=== PATIENT | female | born 1955 | race Caucasian/White ===

== ENCOUNTER 2017-12-07 12:00 | Inpatient (IN) | payer BC ==
[2017-12-07] VITALS (7 sets, daily range): BP systolic 147–201; BP diastolic 64–84
[~2017-12-07] VITALS: Ht 152.4 cm; Wt 76.9 kg
[~2017-12-07 12:00] MED LIST: ANUCORT HC25 MG RC; FLEXERIL; K-DUR 20MEQ20 MEQ PO; MOTRIN800 MG PO; NKHM; NORVASC5 MG PO; RESTORIL; RITALIN10 MG
[2017-12-07] MEDS ORDERED: NORVASC5 MG PO (12:10)
[2017-12-07] MEDS ORDERED: PRILOSEC20 M1 PO (12:12)
[2017-12-07] MEDS ORDERED: OSTERA TABLET1 EACH PO (12:13)
[2017-12-07] MEDS ORDERED: COZAAR100 MG PO (12:13)
[2017-12-07] MEDS ORDERED: ADDERALL 30 MG30 MG PO (12:14)
[2017-12-07 12:33] LABS: BASO # 0.1 10*3/uL (0.0-0.1); BASO % 0.5 % (0.0-1.0); EOS # 0.2 10*3/uL (0.0-0.4); EOS % 1.9 % (1.0-4.0); HEMATOCRIT 43.2 % (37.0-47.0); HEMOGLOBIN 14.2 g/dl (12.0-16.0); LYMPH # 4.5 10*3/uL (1.3-4.4); LYMPH % 44.1 % (27.0-41.0); MEAN CELL VOLUME 80.7 fl (81.0-99.0); MEAN CORPUSCULAR HGB 26.5 pg (27.0-31.0); MEAN CORPUSCULAR HGB CONC 32.9 g/dl (33.0-37.0); MEAN PLATELET VOLUME 9.7 fl (9.6-12.3); MONO # 0.7 10*3/uL (0.1-1.0); MONO % 6.7 % (3.0-9.0); NEUT # 4.8 10*3/uL (2.3-7.9); NEUT % 46.6 % (47.0-73.0); PLATELET COUNT AUTOMATED 292 10*3/uL (130-400); RED BLOOD COUNT 5.35 10*6/uL (4.10-5.10); RED CELL DISTRI WIDTH 14.2 % (0-14.5); WHITE BLOOD COUNT 10.3 10*3/uL (4.8-10.8)
[2017-12-07 12:42] LABS: ACT PARTIAL THROMBO TIME 23.1 SECONDS (20.8-31.5); INTERNATIONAL NORM RATIO 0.9 (2.0-3.5)
[2017-12-07 12:55] LABS: ALBUMIN 3.8 gm/dl (3.1-4.5); ALKALINE PHOSPHATASE 118 U/L (45-117); BUN 7 mg/dl (7-24); CHLORIDE 101 mmol/L (98-107); CREATININE 0.87 mg/dL (0.55-1.02); LIPASE 84 U/L (73-393); POTASSIUM 3.4 mmol/L (3.5-5.1); SGOT/AST 30 IU/L (3-35); SGPT/ALT 32 U/L (12-78); SODIUM 137 mmol/L (136-145); TOTAL PROTEIN 8.2 gm/dL (6.4-8.2)
[2017-12-07 12:56] LABS: TROPONIN I < 0.015 ng/ml (<0.045)
[2017-12-07] MEDS ORDERED: VITAMIN D5000 UNIT PO (16:22)
[2017-12-07] MEDS ORDERED: DUONEB 3 MG/3 ML3 M1 INH (16:23)
[2017-12-07] MEDS ORDERED: ADVAIR HFA 115-12 GM INH (16:24)
[2017-12-08] VITALS: BP 127/54
[2017-12-08 06:44] LABS: BASO % 0.6 % (0.0-1.0); EOS # 0.2 10*3/uL (0.0-0.4); EOS % 2.3 % (1.0-4.0); HEMATOCRIT 40.7 % (37.0-47.0); HEMOGLOBIN 13.1 g/dl (12.0-16.0); LYMPH # 3.5 10*3/uL (1.3-4.4); LYMPH % 51.2 % (27.0-41.0); MEAN CELL VOLUME 82.4 fl (81.0-99.0); MEAN CORPUSCULAR HGB 26.5 pg (27.0-31.0); MEAN CORPUSCULAR HGB CONC 32.2 g/dl (33.0-37.0); MONO # 0.6 10*3/uL (0.1-1.0); NEUT # 2.6 10*3/uL (2.3-7.9); NEUT % 37.8 % (47.0-73.0); PLATELET COUNT AUTOMATED 264 10*3/uL (130-400); RED BLOOD COUNT 4.94 10*6/uL (4.10-5.10); WHITE BLOOD COUNT 6.9 10*3/uL (4.8-10.8)
[2017-12-08 07:16] LABS: ALBUMIN 3.4 gm/dl (3.1-4.5); BUN 8 mg/dl (7-24); CHLORIDE 101 mmol/L (98-107); CHOLESTEROL 130 mg/dL (<200); CREATININE 0.93 mg/dL (0.55-1.02); HDL CHOLESTEROL 40 mg/dl (40-60); LDL CHOLESTEROL 71 mg/dL (9-159); PHOSPHOROUS 3.6 mg/dL (2.5-4.9); POTASSIUM 3.2 mmol/L (3.5-5.1); SGPT/ALT 27 U/L (12-78); SODIUM 140 mmol/L (136-145); TOTAL PROTEIN 7.5 gm/dL (6.4-8.2); TRIGLYCERIDES 97 mg/dl (<150); VLDL CHOLESTEROL 19 mg/dL (6-40)
[2017-12-08 07:21] LABS: ALKALINE PHOSPHATASE 100 U/L (45-117); SGOT/AST 17 IU/L (3-35)
[2017-12-08 08:00] VITALS: BP 149/77
[2017-12-08 08:31] LABS: VITAMIN D, 25-HYDROXY 24.5 ng/mL (30-100)
[2017-12-08 12:00] VITALS: BP 143/67
== END 2017-12-08 15:54 | disposition home or self-care (01) | DRG 305 ==
LOC: ED 12:00 → 5E 14:48 → EDHOLD 14:48 → 5E 15:04
PROVIDERS: Emergency Medicine; Internal Medicine
DX: I16.1 Hypertensive emergency (principal); E83.41 Hypermagnesemia; E66.9 Obesity, unspecified; R20.2 Paresthesia of skin; E87.6 Hypokalemia; J45.909 Unspecified asthma, uncomplicated; I10 Essential (primary) hypertension; R53.82 Chronic fatigue, unspecified; K64.9 Unspecified hemorrhoids; K59.00 Constipation, unspecified; K21.9 Gastro-esophageal reflux disease without esophagitis; Z68.30 Body mass index [BMI] 30.0-30.9, adult

== ENCOUNTER 2018-10-26 12:34 | Emergency (ER) | payer BC ==
[~2018-10-26] VITALS: Ht 152.4 cm; Wt 75.7 kg
[~2018-10-26 12:34] MED LIST changes: +ADDERALL 30 MG30 MG PO; +ADVAIR HFA 115-12 GM INH; +COZAAR100 MG PO; +DUONEB 3 MG/3 ML3 M1 INH; +OSTERA TABLET1 EACH PO; +PRILOSEC20 M1 PO; +VITAMIN D5000 UNIT PO
[2018-10-26] MEDS ORDERED: PROAIR HFA8.5 GM INH (14:25)
[2018-10-26] MEDS ORDERED: PREDNISONE50 MG PO (14:25)
[2018-10-26] MEDS ORDERED: AMOXICILLIN500 M3 PO (14:25)
[2018-10-26 14:27] VITALS: BP 149/60
== END 2018-10-26 14:29 | disposition home or self-care (01) ==
LOC: ED 12:34
DX: H65.91 Unspecified nonsuppurative otitis media, right ear (principal); J20.9 Acute bronchitis, unspecified; J45.909 Unspecified asthma, uncomplicated; I10 Essential (primary) hypertension; Z79.899 Other long term (current) drug therapy

== ENCOUNTER 2022-07-30 13:45 | Emergency (ER) | payer BC ==
[~2022-07-30] VITALS: Wt 72.6 kg
[~2022-07-30 13:45] MED LIST changes: +AMOXICILLIN500 M3 PO; +PREDNISONE50 MG PO; +PROAIR HFA8.5 GM INH
[2022-07-30 13:54] VITALS: BP 133/57
[2022-07-30 15:35] LABS: BILIRUBIN Negative (Negative); BLOOD Negative (Negative); CLARITY Clear (Clear); COLOR Yellow (Yellow); GLUCOSE Negative (Negative); KETONE Negative (Negative); LEUKO ESTERASE 2+ (Negative); NITRITE Negative (Negative); UROBILINOGEN 0.2 E.U./dl (0.0-1.0)
[2022-07-30 16:03] LABS: BACTERIA 2+; EPITHELIAL CELLS TNTC; RBC 0-2 rbc/hpf (0-2); WBC 16-20 wbc/hpf (0-5)
[2022-07-30] MEDS ORDERED: PYRIDIUM200 M1 PO (16:25)
[2022-07-30] MEDS ORDERED: MACROBID100 M1 PO (16:25)
== END 2022-07-30 16:36 | disposition home or self-care (01) ==
LOC: ED 13:45
PROVIDERS: Emergency Medicine
DX: N39.0 Urinary tract infection, site not specified (principal); Z79.899 Other long term (current) drug therapy; Z90.89 Acquired absence of other organs; Z98.890 Other specified postprocedural states

== ENCOUNTER 2022-10-01 16:43 | Emergency (ER) | payer BC ==
[~2022-10-01] VITALS: Wt 72.6 kg
[~2022-10-01 16:43] MED LIST changes: +MACROBID100 M1 PO; +PYRIDIUM200 M1 PO
[2022-10-01 16:48] VITALS: BP 175/78
[2022-10-01] MEDS ORDERED: PREDNISONE50 MG PO (17:14)
[2022-10-01] MEDS ORDERED: MUCINEX1200 M1 PO (17:14)
== END 2022-10-01 17:30 | disposition home or self-care (01) ==
LOC: ED 16:43
DX: J45.901 Unspecified asthma with (acute) exacerbation (principal); Z90.89 Acquired absence of other organs; Z98.890 Other specified postprocedural states; F10.20 Alcohol dependence, uncomplicated

== ENCOUNTER 2024-11-13 12:59 | Inpatient (IN) | payer BC ==
[~2024-11-13] VITALS: Ht 149.8 cm; Wt 78.6 kg
[~2024-11-13 12:59] MED LIST changes: +MUCINEX1200 M1 PO
[2024-11-13 13:10] VITALS: BP 140/71
[2024-11-13] MEDS ORDERED: Ondansetron Hydrochloride 4 MG/2 ML VIAL IV ONE ×2 (14:15→17:15)
[2024-11-13] MEDS ORDERED: Acetaminophen/Oxycodone 5 MG/325 MG TABLET PO ONE (14:15)
[2024-11-13] MEDS ORDERED: ACETAMINOPHEN 500 MG TAB PO ONE (14:15)
[2024-11-13] MEDS ORDERED: SODIUM CHLORIDE 0.9% 1,000 ML IV ONE (14:15)
[2024-11-13 14:36] LABS: BASO % 0.2 % (0.0-1.0); HEMATOCRIT 42.9 % (37.0-47.0); MEAN CELL VOLUME 82.7 fl (81.0-99.0); MEAN CORPUSCULAR HGB 25.6 pg (27.0-31.0); MEAN PLATELET VOLUME 9.7 fl (9.6-12.3); MONO # 0.7 10*3/uL (0.1-1.0); MONO % 3.7 % (3.0-9.0); NEUT # 17.5 10*3/uL (2.3-7.9); NEUT % 87.1 % (47.0-73.0); PLATELET COUNT AUTOMATED 284 10*3/uL (130-400); RED BLOOD COUNT 5.19 10*6/uL (4.10-5.10); RED CELL DISTRI WIDTH 14.3 % (0-14.5); WHITE BLOOD COUNT 20.1 10*3/uL (4.8-10.8)
[2024-11-13 14:58] LABS: ALKALINE PHOSPHATASE 103 U/L (46-116); BUN 8 mg/dl (9-23); CHLORIDE 99 mmol/L (98-107); LIPASE 23 U/L (12-53); POTASSIUM 3.4 mmol/L (3.4-5.1); SGPT/ALT 21 U/L (5-49); TOTAL PROTEIN 8.8 gm/dL (6.0-8.0)
[2024-11-13] MEDS ORDERED: IOHEXOL 300 MG/ML 100 ML VIAL IV ONE (15:25)
[2024-11-13] MEDS ORDERED: IOHEXOL 300 MG/ML 100 ML VIAL ONE (15:42)
[2024-11-13] MEDS ORDERED: Piperacillin Sodium/Tazobact 50 ML IV ONE (15:50)
[2024-11-13] MEDS ORDERED: SODIUM CHLORIDE 0.9% 1,000 ML IV SCH (15:50)
[2024-11-13 17:15] LABS: BILIRUBIN Negative (Negative); BLOOD 1+ (Negative); CLARITY Clear (Clear); COLOR Yellow (Yellow); GLUCOSE Negative (Negative); KETONE Trace (Negative); LEUKO ESTERASE Trace (Negative); NITRITE Negative (Negative); PH 7.5 (4.5-8.0)
[2024-11-13 17:29] LABS: BACTERIA 1+; MUCOUS 3+
[2024-11-13] MEDS ORDERED: Ceftriaxone Sodium 1 GM/10 ML SYR IV ONE (19:30)
[2024-11-13] MEDS ORDERED: OFLOXACIN 0.3% 5 ML BOTTLE OT ONE (19:30)
[2024-11-13 19:32] VITALS: BP 109/50
[2024-11-13] MEDS ORDERED: Acetaminophen/Hydrocodone 5 MG/325 MG TABLET PO PRN (21:35)
[2024-11-13] MEDS ORDERED: BISACODYL 10 MG SUPP R PRN (21:35)
[2024-11-13] MEDS ORDERED: BISACODYL 5 MG TAB PO PRN (21:35)
[2024-11-13] MEDS ORDERED: ACETAMINOPHEN 650 MG SUPP R PRN (21:35)
[2024-11-13] MEDS ORDERED: MORPHINE Sulfate 2 MG/ML SYR IV PRN (21:35)
[2024-11-13] MEDS ORDERED: Ondansetron Hydrochloride 4 MG/2 ML VIAL IV PRN (21:35)
[2024-11-13] MEDS ORDERED: Magnesium Hydroxide 30 ML UDC PO PRN (21:35)
[2024-11-13] MEDS ORDERED: ACETAMINOPHEN 325 MG TAB PO PRN (21:35)
[2024-11-13] MEDS ORDERED: Ciprofloxacin Hydrochloride 0.3% OPHTHLAMIC BOTTLE OT SCH (22:24)
[2024-11-14] MEDS ORDERED: ACETIC ACID OT SCH
[2024-11-14] MEDS ORDERED: HYDROCORTISONE OT SCH
[2024-11-14 06:00] VITALS: BP 132/64
[2024-11-14 06:53] LABS: BASO % 0.4 % (0.0-1.0); EOS % 0.4 % (1.0-4.0); HEMATOCRIT 37.9 % (37.0-47.0); MEAN CELL VOLUME 82.4 fl (81.0-99.0); MEAN CORPUSCULAR HGB 25.7 pg (27.0-31.0); MEAN CORPUSCULAR HGB CONC 31.1 g/dl (33.0-37.0); MEAN PLATELET VOLUME 10.4 fl (9.6-12.3); MONO # 0.8 10*3/uL (0.1-1.0); MONO % 7.8 % (3.0-9.0); NEUT # 7.3 10*3/uL (2.3-7.9); NEUT % 68.8 % (47.0-73.0); RED CELL DISTRI WIDTH 14.6 % (0-14.5); WHITE BLOOD COUNT 10.6 10*3/uL (4.8-10.8)
[2024-11-14 06:55] LABS: PLATELET COUNT AUTOMATED 196 10*3/uL (130-400)
[2024-11-14 07:49] VITALS: BP 127/67
[2024-11-14 07:59] LABS: BUN 6 mg/dl (9-23); CHLORIDE 103 mmol/L (98-107); POTASSIUM 3.4 mmol/L (3.4-5.1)
[2024-11-14] MEDS ORDERED: IOHEXOL 300 MG/ML 100 ML VIAL IV ONE (08:05)
[2024-11-14] MEDS ORDERED: ROSUVASTATIN CAL5 MG PO (09:45)
[2024-11-14] MEDS ORDERED: MONTELUKAST SOD10 MG PO (09:45)
[2024-11-14] MEDS ORDERED: FLUCONAZOLE 100 ML IV SCH (10:00)
[2024-11-14] MEDS ORDERED: Enoxaparin Sodium 40 MG/0.4 ML SYR SC SCH (10:00)
[2024-11-14] MEDS ORDERED: LEVOFLOXACIN 750 MG TAB PO ONE (11:25)
[2024-11-14] MEDS ORDERED: Ceftriaxone Sodium 2 GM in SYRINGE INFUSION 20 ML IV SCH (12:00)
[2024-11-14] MEDS ORDERED: Piperacillin Sodium/Tazobact 4.5 GM in SODIUM CHLORIDE 0.9% 100 ML IV SCH (14:00)
[2024-11-14] MEDS ORDERED: Vancomycin Hydrochloride 1,000 MG in SODIUM CHLORIDE 0.9% 250 ML IV SCH ×2 (14:10→16:00)
[2024-11-14 15:27] VITALS: BP 139/63
[2024-11-14] MEDS ORDERED: NORVASC10 MG PO (15:58)
[2024-11-14] MEDS ORDERED: PEG3350238 GM PO (16:00)
[2024-11-14] MEDS ORDERED: Ceftriaxone Sodium 1 GM in SYRINGE INFUSION 10 ML IV SCH (18:00)
[2024-11-14 20:00] VITALS: BP 129/41
[2024-11-14] MEDS ORDERED: Rosuvastatin Calcium 10 MG TABLET PO SCH (22:00)
[2024-11-15] VITALS: BP 153/62
[2024-11-15 06:17] LABS: BASO % 0.5 % (0.0-1.0); EOS # 0.1 10*3/uL (0.0-0.4); EOS % 0.7 % (1.0-4.0); HEMATOCRIT 37.7 % (37.0-47.0); MEAN CELL VOLUME 81.8 fl (81.0-99.0); MEAN CORPUSCULAR HGB 25.6 pg (27.0-31.0); MEAN CORPUSCULAR HGB CONC 31.3 g/dl (33.0-37.0); MEAN PLATELET VOLUME 9.7 fl (9.6-12.3); MONO # 0.7 10*3/uL (0.1-1.0); MONO % 8.6 % (3.0-9.0); NEUT # 4.9 10*3/uL (2.3-7.9); NEUT % 59.4 % (47.0-73.0); PLATELET COUNT AUTOMATED 218 10*3/uL (130-400); RED BLOOD COUNT 4.61 10*6/uL (4.10-5.10); RED CELL DISTRI WIDTH 14.5 % (0-14.5); WHITE BLOOD COUNT 8.2 10*3/uL (4.8-10.8)
[2024-11-15 06:28] LABS: BUN 5 mg/dl (9-23); CHLORIDE 101 mmol/L (98-107); POTASSIUM 3.5 mmol/L (3.4-5.1)
[2024-11-15] MEDS ORDERED: OMEPRAZOLE 20 MG CAP PO SCH (07:00)
[2024-11-15 07:58] VITALS: BP 138/57
[2024-11-15] MEDS ORDERED: Loperamide Hydrochloride 2 MG CAP PO ONE (09:30)
[2024-11-15] MEDS ORDERED: amLODIPine besylate 10 MG TAB PO SCH (10:00)
[2024-11-15] MEDS ORDERED: Montelukast Sodium 10 MG TAB PO SCH (10:00)
[2024-11-15] MEDS ORDERED: amLODIPine besylate 5 MG TAB PO SCH (10:00)
[2024-11-15 12:00] VITALS: BP 135/77
[2024-11-15 16:00] VITALS: BP 129/72
[2024-11-15] MEDS ORDERED: Loperamide Hydrochloride 2 MG CAP PO PRN (16:35)
[2024-11-15 20:00] VITALS: BP 116/89; BP 125/55
[2024-11-16] VITALS: BP 139/75
[2024-11-16 04:00] VITALS: BP 133/72
[2024-11-16 06:42] LABS: BASO # 0.1 10*3/uL (0.0-0.1); BASO % 0.7 % (0.0-1.0); EOS # 0.2 10*3/uL (0.0-0.4); EOS % 2.1 % (1.0-4.0); HEMATOCRIT 39.2 % (37.0-47.0); MEAN CELL VOLUME 82.4 fl (81.0-99.0); MEAN CORPUSCULAR HGB 25.4 pg (27.0-31.0); MEAN CORPUSCULAR HGB CONC 30.9 g/dl (33.0-37.0); MEAN PLATELET VOLUME 9.4 fl (9.6-12.3); MONO # 0.6 10*3/uL (0.1-1.0); MONO % 7.9 % (3.0-9.0); NEUT # 3.4 10*3/uL (2.3-7.9); NEUT % 47.6 % (47.0-73.0); PLATELET COUNT AUTOMATED 277 10*3/uL (130-400); RED BLOOD COUNT 4.76 10*6/uL (4.10-5.10); RED CELL DISTRI WIDTH 14.3 % (0-14.5); WHITE BLOOD COUNT 7.1 10*3/uL (4.8-10.8)
[2024-11-16 07:06] LABS: BUN < 5 mg/dl (9-23); CHLORIDE 100 mmol/L (98-107); POTASSIUM 2.8 mmol/L (3.4-5.1)
[2024-11-16 08:00] VITALS: BP 133/55
[2024-11-16] MEDS ORDERED: POTASSIUM CHLORIDE 20 MEQ TAB PO ONE (08:55)
[2024-11-16 12:00] VITALS: BP 140/61
[2024-11-16 16:00] VITALS: BP 131/61
[2024-11-16] MEDS ORDERED: LINEZOLID600 MG PO (18:23)
[2024-11-16] MEDS ORDERED: LEVOFLOXACIN750 M2 PO (18:23)
[2024-11-16 20:00] VITALS: BP 136/51
[2024-11-17] VITALS: BP 137/52
[2024-11-17 06:58] LABS: BASO # 0.1 10*3/uL (0.0-0.1); BASO % 0.7 % (0.0-1.0); EOS # 0.2 10*3/uL (0.0-0.4); EOS % 1.8 % (1.0-4.0); HEMATOCRIT 39.5 % (37.0-47.0); MEAN CELL VOLUME 81.1 fl (81.0-99.0); MEAN CORPUSCULAR HGB 25.7 pg (27.0-31.0); MEAN CORPUSCULAR HGB CONC 31.6 g/dl (33.0-37.0); MEAN PLATELET VOLUME 9.9 fl (9.6-12.3); MONO # 0.6 10*3/uL (0.1-1.0); MONO % 6.9 % (3.0-9.0); NEUT # 4.6 10*3/uL (2.3-7.9); NEUT % 50.2 % (47.0-73.0); PLATELET COUNT AUTOMATED 210 10*3/uL (130-400); RED BLOOD COUNT 4.87 10*6/uL (4.10-5.10); RED CELL DISTRI WIDTH 14.6 % (0-14.5); WHITE BLOOD COUNT 9.1 10*3/uL (4.8-10.8)
[2024-11-17 07:24] LABS: BUN 6 mg/dl (9-23); CHLORIDE 102 mmol/L (98-107); POTASSIUM 3.4 mmol/L (3.4-5.1)
[2024-11-17 08:00] VITALS: BP 137/59
[2024-11-17] MEDS ORDERED: Vancomycin Hydrochloride 750 MG in SODIUM CHLORIDE 0.9% 250 ML IV SCH (10:00)
[2024-11-17] MEDS ORDERED: LEVOFLOXACIN750 M2 PO (11:06)
[2024-11-17 12:00] VITALS: BP 137/72
== END 2024-11-17 14:52 | disposition home or self-care (01) | DRG 872 ==
LOC: ED 12:59 → EDHOLD 19:31 → ICCU 19:31 → EDHOLD 11-14 03:49 → ICCU 11-14 15:00 → 4E 11-15 18:37
PROVIDERS: Nurse Practitioner Family; Student in an Organized Health Care Education/Training Program; ADMIT Internal Medicine; ATTEND Internal Medicine
DX: A41.9 Sepsis, unspecified organism (principal); L03.211 Cellulitis of face; N39.0 Urinary tract infection, site not specified; H60.502 Unspecified acute noninfective otitis externa, left ear; H70.92 Unspecified mastoiditis, left ear; K31.84 Gastroparesis; K22.719 Barrett's esophagus with dysplasia, unspecified; J45.909 Unspecified asthma, uncomplicated; I10 Essential (primary) hypertension; K21.9 Gastro-esophageal reflux disease without esophagitis; D64.9 Anemia, unspecified; Z20.822 Contact with and (suspected) exposure to COVID-19; K11.21 Acute sialoadenitis; K57.90 Diverticulosis of intestine, part unspecified, without perforation or abscess without bleeding; J44.9 Chronic obstructive pulmonary disease, unspecified; R65.20 Severe sepsis without septic shock; E66.9 Obesity, unspecified; Z82.3 Family history of stroke; Z80.8 Family history of malignant neoplasm of other organs or systems; Z83.79 Family history of other diseases of the digestive system; Z82.49 Family history of ischemic heart disease and other diseases of the circulatory system; Z68.35 Body mass index [BMI] 35.0-35.9, adult